=== PATIENT | male | born 1965 | race Two or more races ===

== ENCOUNTER 2017-06-29 05:39 | Outpatient (CLI) | payer OTHER ==
[~2017-06-29] VITALS: Ht 170.2 cm; Wt 95.3 kg
== END 2017-06-29 10:20 ==
LOC: PREOP 05:39
PROVIDERS: ATTEND Surgery
DX: Z01.818 Encounter for other preprocedural examination (principal); K92.1 Melena

== ENCOUNTER 2017-07-06 07:38 | Day surgery (SDC) | payer OTHER ==
[~2017-07-06] VITALS: Ht 170.2 cm; Wt 95.3 kg
[2017-07-06] MEDS ORDERED: NS IV 500 ML 500 ML ONE (07:48)
[2017-07-06] MEDS ORDERED: NS IV 500 ML 500 ML IV PRN (07:55)
[2017-07-06 08:20] VITALS: BP 131/90
[2017-07-06] MEDS ORDERED: fentaNYL INJECTION 100 MCG/2 ML AMP ONE (08:24)
[2017-07-06] MEDS ORDERED: MIDAZOLAM 2 MG/2 ML (VERSED) VIAL ONE ×4 (08:24→08:25)
[2017-07-06] MEDS: fentaNYL INJECTION 100 MCG/2 ML AMP IVP PRN ×2 (08:37→08:41)
[2017-07-06] MEDS: MIDAZOLAM 2 MG/2 ML (VERSED) VIAL IVP PRN ×3 (08:38→08:44)
--- NOTE | 2017-07-06 08:39 | History & Physicial ---
History of Present Illness History of Present Illness Reason for visit/HPI to undergo colonoscopy regarding intermittent rectal bleeding over the past 6 months. No family history of colon cancer. Date of Admission 07/06/17 Date Seen by Provider: Jul 06, 2017 Time Seen by Provider: 08:37 I consulted on this patient on 07/06/17 08:37 Attending Physician Margi Olvera MD Admitting Physician No,Local Physician Consult Allergies and Home Medications Allergies Coded Allergies: No Known Drug Allergies (Unverified , 06/29/17) Home Medications No Active Prescriptions or Reported Meds Patient Home Medication List Home Medication List Reviewed: Yes Past Bconleq-Thhkdb-Jbudwq Hx Patient Social History Marrital Status: Employed/Student: employed Alcohol Use: Denies Use Recreational Drug Use: No Smoking Status: Never a Smoker Recent Foreign Travel: No Contact w/other who traveled: No Recent Hopitalizations: No Immunizations Up To Date Date of Influenza Vaccine: Jan 12, 2017 Seasonal Allergies Seasonal Allergies: No Surgeries No Respiratory No Cardiovascular No Reproductive System Hx Reproductive Disorders: No Sexually Transmitted Disease: No HIV/AIDS: No Genitourinary No Gastrointestinal Yes Chronic Constipation, Hemorrhoids Musculoskeletal No Endocrine History of Endocrine Disorders: No HEENT History of HEENT Disorders: No Loss of Vision: Bilateral Hearing Impairment: Denies Cancer No Psychosocial History of Psychiatric Problem: No Integumentary History of Skin or Integumenta: No Blood Transfusions Adverse Reaction to a Blood Tr: No (N/A) Family Medical History Significant Family History: No Pertinent Family Hx Constitutional: no symptoms reported EENTM: no symptoms reported Respiratory: no symptoms reported Cardiovascular: no symptoms reported Gastrointestinal: see HPI Genitourinary: no symptoms reported Musculoskeletal: no symptoms reported Skin: no symptoms reported Psychiatric/Neurological: No Symptoms Reported Physical Exam Vital Signs Vital Signs - First Documented 07/06/17 08:20 Temp 99.3 Pulse 71 Resp 16 B/P (MAP) 131/90 (104) Pulse Ox 95 O2 Delivery Room Air Capillary Refill : General Appearance: Anxious Neck: Normal Inspection Respiratory: Lungs Clear Cardiovascular: Regular Rate, Rhythm Gastrointestinal: Non Tender, Soft Rectal: Deferred Extremity: Normal Inspection Neurologic/Psychiatric: Alert, Oriented x3 Skin: Warm/Dry Assessment/Plan Assessment and Plan gentleman with a history of intermittent rectal bleeding. No relevant family history. For colonoscopy. Problems: Admission Diagnosis Admission Status: Other (Outpt Proc) MARGI OLVERA MD Jul 06, 2017 8:39 am
--- NOTE | 2017-07-06 08:39 | Conscious Sedation/ASA ---
Conscious Sedation Pre-Proced Time Reviewed: 08:39 ASA Class: 1 Airway Mallampati Classification: (kenaitze appropriate class) I. II. III, IV Lungs Heart ASA score ASA 1: a normal healthy patient ASA 2: a patient with a mild systemic disease (mid diabetes, controlled hypertension, obesity ASA 3: a patient with a severe systemic disease that limits activity (angina , COPD, prior Myocardial infarction) ASA 4: a patient with an incapacitating disease that is a constant threat to life (CHF, renal failure) ASA 5: a moribund patient not expected to survive 24 hrs. (ruptured aneurysm) ASA 6: a declared brain patient whose organs are being harvested. For emergent operations, add the letter E after the classification Grade 1 Sedation Plan: Discussed options with patient/fam Note The patient is an appropriate candidate to undergo the planned procedure, sedation, and anesthesia. The patient immediately re-assessed prior to indication. MARGI OLVERA MD Jul 06, 2017 8:39 am
--- NOTE | 2017-07-06 08:53 | Endo Procedure Record ---
Endo Procedure Report Date of Procedure Last Colonoscopy: No Jul 06, 2017 Surgeon (s) MARGI OLVERA MD Post Procedure/Op Diagnosis Internal hemorrhoids Procedure Performed Colonoscopy to cecum Description of Procedure Anesthesia Type: Conscious Sedation Specimen(s) collected/removed none Description of the Procedure Indication for the procedure: This gentleman came in for colonoscopy to evaluate intermittent rectal bleeding. Informed consent was obtained after reviewing the procedure in detail. Description of the procedure: He was placed in left lateral decubitus position and his vital signs were monitored. Conscious sedation was achieved using Versed and fentanyl. Examination of the perianal area revealed anal skin tags. Digital rectal examination was unremarkable. The colonoscope was then introduced in the rectum and advanced to the cecum The scope was then withdrawn slowly and the mucosa examined in a systematic fashion. Findings: 1. Internal hemorrhoids, the source of his bleeding 2. Very few diverticula He tolerated the procedure well and was taken back to the nursing area in a stable condition. Impression: Rectal bleeding due to internal hemorrhoids. Will treat conservatively. Copies To: [place] FRANCIS XAVIER M MD Jul 06, 2017 8:53 am
--- NOTE | 2017-07-06 08:54 | Discharge Inst-Simple/Standard ---
Discharge Inst-Standard Discharge Medications New, Converted or Re-Newed RX: Other Patient Instructions/Follow Up Plan of Care/Instructions/FU: High fiber diet. Stool softeners to avoid constipation. Activity as Tolerated: Yes Discharge Diet: No Restrictions MARGI OLVERA MD Jul 06, 2017 8:54 am
[2017-07-06 09:10] VITALS: BP 119/75
[2017-07-06 09:30] VITALS: BP 124/79
[2017-07-06 12:32] VITALS: BP 124/79
== END 2017-07-06 09:45 | disposition home or self-care (01) ==
LOC: ENDO 07:38
PROVIDERS: ATTEND Surgery
DX: K64.8 Other hemorrhoids (principal); K57.30 Diverticulosis of large intestine without perforation or abscess without bleeding